=== PATIENT | female | born 1965 | race Caucasian/White ===

== ENCOUNTER 2016-12-23 13:12 | Inpatient (IN) | payer MEDICAID, MEDICARE ==
[2016-12-23 13:41] VITALS: BMI 25.4
[2016-12-23 13:42] VITALS: O2SAT 99
--- NOTE | 2016-12-23 14:36 | ED PDOC ---
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 eye vision blurry , nkda, c/o anxiety and depression for months. Pt. stated that she has chronic rt. facial droop from the bells palsy which she is following up with the neurologist with therapy treatment plus the plastic surgeon, rt. facial droop has been causing her feeling anxious, depressed and unable to sleep. Pt. stated that she had study on the lymes test and radiology studies of the brain which show no acute findings, no worsening of the rt. facial droop for the past several month, no numbness or tingling, no headache or night sweat, no palpitation, no dizziness, no change in vision, no other medical or psychological complaints. (Paras Samuel) Past Medical History - Provider Review Nursing Documentation Reviewed: Yes - Cardiac Hx Cardiac Disorders: No Hx Angina: No - Pulmonary Hx Respiratory Disorders: No - Neurological Hx Neurological Disorder: No - HEENT Hx HEENT Disorder: No - Renal Hx Renal Disorder: No - Endocrine/Metabolic Hx Endocrine Disorders: No - Hematological/Oncological Hx Blood Disorders: Yes Hx Cancer: Yes (left breast) - Integumentary Hx Dermatological Disorder: No - Musculoskeletal/Rheumatological Hx Musculoskeletal Disorders: No - Gastrointestinal Hx Gastrointestinal Disorders: No - Genitourinary/Gynecological Hx Genitourinary Disorders: No - Psychiatric Hx Psychophysiologic Disorder: Yes Hx Anxiety: Yes Hx Depression: Yes Hx Substance Use: No - Surgical History Hx Breast Biopsy: Yes (left breast) Family/Social History - Physician Review Nursing Documentation Reviewed: Yes Family/Social History: Unknown Family HX Smoking Status: Heavy Smoker > 10 Cigarettes Daily Hx Alcohol Use: No Hx Substance Use: No Allergies/Home Meds Allergies/Adverse Reactions: Allergies black pepper Allergy (Verified 12/25/16 01:28) PAIN Home Medications: Home Meds Medication Instructions Recorded Confirmed Alprazolam [Xanax] 1 tab PO BID 12/23/16 12/23/16 Amitriptyline HCl [Amitriptyline 50 mg PO HS 12/23/16 12/23/16 HCl] Bethanechol [Urecholine] 25 mg PO BID 12/23/16 12/23/16 Esomeprazole Magnesium [Nexium] 40 mg PO DAILY 12/23/16 12/23/16 Fluorometholone [Fluorometholone] 1 drop LEFTEYE BID 12/23/16 12/23/16 Levothyroxine [Synthroid] 137 mcg PO DAILY 12/23/16 12/23/16 Lubiprostone [Amitiza] 1 tab PO BID 12/23/16 12/23/16 Memantine HCl/Donepezil HCl 1 tab PO DAILY 12/23/16 12/23/16 [Namzaric 28 mg-10 mg Capsule] Metoprolol Succinate XL [Toprol XL] 50 mg PO DAILY 12/23/16 12/23/16 Montelukast [Singulair] 10 mg PO DAILY 12/23/16 12/23/16 Ofloxacin Ophth 0.3% [Ocuflox 1 drop LEFTEYE BID 12/23/16 12/23/16 Ophth 0.3%] Propylene Glycol/Peg 400/Pf 1 drop BOTHEYES BID 12/23/16 12/23/16 [Systane 0.3-0.4% Eye Drops] QUEtiapine [SEROquel] 50 mg PO HS 12/23/16 12/23/16 Simvastatin [Zocor] 20 mg PO DAILY 12/23/16 12/23/16 Tamoxifen Citrate [Tamoxifen 20 mg PO HS 12/23/16 12/23/16 Citrate] Review of Systems - Review of Systems Constitutional: absent: Fatigue, Fevers Eyes: absent: Vision Changes ENT: absent: Hearing Changes Respiratory: absent: SOB, Cough, Sputum Cardiovascular: absent: Chest Pain Gastrointestinal: absent: Abdominal Pain, Nausea, Vomiting Musculoskeletal: absent: Arthralgias, Neck Pain, Joint Swelling, Myalgias Skin: absent: Rash, Pruritis, Skin Lesions Neurological: Focal Weakness, Facial Droop. absent: Headache, Dizziness, Gait Changes, Speech Changes, Disequilibrium, Seizure Endocrine: absent: Diaphoresis Hemo/Lymphatic: absent: Adenopathy Psychiatric: Anxiety, Depression Physical Exam Vital Signs Reviewed: Yes Temperature: Afebrile Blood Pressure: Normal Pulse: Regular Respiratory Rate: Normal Appearance: Positive for: Well-Appearing, Non-Toxic, Comfortable Pain Distress: None Mental Status: Positive for: Alert and Oriented X 3 - Systems Exam Head: Present: Atraumatic, Normocephalic Pupils: Present: PERRL Extroacular Muscles: Present: EOMI Conjunctiva: Present: Normal Ears: Present: NORMAL TM, Normal Canal. No: Erythema Mouth: Present: Moist Mucous Membranes Pharnyx: No: ERYTHEMA, EXUDATE, TONSILS ENLARGED, Peritonsilar Swelling, Uvular Deviation Nose (External): Present: Atraumatic. No: Abrasion, Contusion, Laceration Nose (Internal): Present: Normal Inspection, No Active Bleeding. No: Rhinorrhea , Septal Hematoma, Epistaxis Neck: Present: Normal Range of Motion Respiratory/Chest: Present: Clear to Auscultation, Good Air Exchange. No: Respiratory Distress, Accessory Muscle Use Cardiovascular: Present: Regular Rate and Rhythm, Normal S1, S2. No: Murmurs Abdomen: Present: Normal Bowel Sounds. No: Tenderness, Distention, Peritoneal Signs Back: Present: Normal Inspection Upper Extremity: Present: Normal Inspection. No: Cyanosis, Edema Lower Extremity: Present: Normal Inspection. No: Edema Neurological: Present: GCS=15, Motor Func Grossly Intact, Gait Normal, Memory Normal, Other (+unable to elevated the rt. eyebrow but able to open and close the rt. eyelids, +rt. lateral lip drooping and unable to blow. ) Skin: Present: Warm, Dry, Normal Color. No: Rashes Lymphatic: No: Cervical Adenopathy Psychiatric: Present: Alert, Oriented x 3, Normal Insight, Normal Concentration Vital Signs Temp Pulse Resp BP Pulse Ox 12/23/16 13:41 98.1 F 64 16 107/71 99 Medical Decision Making - Lab Interpretations I have reviewed the lab results: Yes Interpretation: No clinic. lab abnormalty - RAD Interpretation Picu Nurse: Radiologist - EKG Interpretation Interpreted by ED Physician: Yes Type: 12 lead EKG Comparison: No previous EKG avail. ED Course and Treatment: I was available for consultation during PA evaluation. The chart was reviewed by me, and I agree with disposition. The documented history was done by the physician appliance mechanic. The documented physical exam was done by the physician appliance mechanic. The documented procedures were done by the physician appliance mechanic. ( Brody Ward) 12/23/16 14:44 -Labs/ua/uds/thyroid panel -CT head and chest xray -ekg -will try to medically clear for the PES evaluation. 12/23/16 17:44 -CT head: 6 mm left basal ganglia hypodensity presumed to reflect chronic lacunar infarct. I explained to the patient and the patient stated that she is following up with the neurologist already. No emergent intervention indicated at this time in the ER. -Chest x-ray show no active disease. -Labs are non-significant compared with previous labs. -EKG show Sinus Bradycardia @ 51 BPM, no ST elevation or depression, no T wave inversion, no previous ekg available for comparison -UA show mild leukocyte esterase, macrobid and urine culture ordered. -UDS show +benzo and +opiate. -Pt. is medically stable for the PES evaluation. 12/23/16 18:20 -PES coral evaluated the patient which he consulted with Dr. Johanne Ceja, admit to [facility]. Pt. agreed to be admitted. -I discussed with Dr. Ward about the case/labs/radiology results, he agreed on the admission and will put in the admission order. (Paras Samuel) - Lab Interpretations Microbiology Results: Microbiology Results 12/23/16 17:55 Urine,Clean Catch Urine Culture - Final No Growth (<1,000 CFU/ML) Lab Results: 12/23/16 17:12 12/23/16 17:12 Lab Results 12/23/16 17:55: Urine Color Yellow, Urine Appearance Clear, Urine pH 6.0, Ur Specific [place] 1.015, Urine Protein Negative, Urine Glucose (UA) Negative, Urine Ketones Negative, Urine Blood Negative, Urine Nitrate Negative, Urine Bilirubin Negative, Urine Urobilinogen 0.2, Ur Leukocyte Esterase Trace H, Urine RBC 2 - 5, Urine WBC 0 - 2, Ur Epithelial Cells Many, Urine Bacteria Small , Urine Opiates Screen Positive H, Urine Methadone Screen Negative, Ur Barbiturates Screen Negative, Ur Phencyclidine Scrn Negative, Ur Amphetamines Screen Negative, U Benzodiazepines Scrn Positive H, U Oth Cocaine Metabols Negative, U Cannabinoids Screen Negative 12/23/16 17:12: WBC 6.5, RBC 4.08, Hgb 10.5 L, Hct 33.7 L, MCV 82.6, MCH 25.7, MCHC 31.2, RDW 17.3 H, Plt Count 311, MPV 9.5, Gran % 34.4 L, Lymph % (Auto) 55.4 H, [place] % (Auto) 7.3 H, Eos % (Auto) 2.4, Baso % (Auto) 0.5, Gran # 2.25, Lymph # 3.6 H, [place] # 0.5, Eos # 0.2, Baso # 0.03, Sodium 140, Potassium 4.3, Chloride 101, Carbon Dioxide 31, Anion Gap 12, BUN 11, Creatinine 0.6, Est GFR ( Amer) > 60, Est GFR (Non-Af Amer) > 60, Random Glucose 85, Calcium 8.6, Total Bilirubin 0.3, AST 22, ALT < 6 L, Alkaline Phosphatase 51, Total Protein 7.3, Albumin 3.6, Globulin 3.7, Albumin/Globulin Ratio 1.0 L, Free T4 1.72, TSH 3rd Generation 0.65, Salicylates < 1 L, Acetaminophen < 10.0 L, Alcohol, Quantitative < 10 - RAD Interpretation Radiology Orders: 12/23/16 14:36 HEAD W/O CONTRAST [CT] Stat CHEST PORTABLE [RAD] Stat CT Head: PROCEDURE: CT HEAD WITHOUT CONTRAST. HISTORY: Rt. sided facial drooping since 07/2016, bells palsy COMPARISON: None available. TECHNIQUE: Axial computed tomography images were obtained through the head/brain without intravenous contrast. Radiation dose: Total exam DLP = 677.45 mGy-cm. This CT exam was performed using one or more of the following dose reduction techniques: Automated exposure control, adjustment of the mA and/or kV according to patient size, and/or use of iterative reconstruction technique. FINDINGS: HEMORRHAGE: No intracranial hemorrhage. BRAIN: No mass effect or edema. Intracranial atherosclerotic calcifications. 6 mm left basal ganglia hypodensity presumed to reflect chronic lacunar infarct. The crespo-white matter differentiation appears otherwise intact. Please note that MRI with diffusion imaging is more sensitive in the detection of acute ischemic event. VENTRICLES: No hydrocephalus. CALVARIUM: Unremarkable. PARANASAL SINUSES: Mild mucosal thickening of the right maxillary sinus. Small fluid level within the left maxillary sinus. The remainder of the visualized paranasal sinuses appear clear. MASTOID AIR CELLS: Unremarkable as visualized. No inflammatory changes. OTHER FINDINGS: None. IMPRESSION: 6 mm left basal ganglia hypodensity presumed to reflect chronic lacunar infarct. Chest x-ray: no active disease (Paras Samuel) - EKG Interpretation EKG Interpretation (Text): 12/23/16 18:43 Sinus Bradycardia @ 51 BPM, no ST elevation or depression, no T wave inversion, no previous ekg available for comparison (Paras Samuel) - Medication Orders Current Medication Orders: Acetaminophen (Tylenol 325mg Tab) 650 mg PO Q6H PRN PRN Reason: Pain, Mild (1-3) Al Hydrox/Mg Hydrox/Simethicone (Maalox Plus 30 Ml) 30 ml PO DAILY PRN PRN Reason: Upset Stomach Alprazolam (Xanax) 2 mg PO AMHS PRN; Protocol PRN Reason: for anxiety Last Admin: 12/25/16 09:25 Dose: 2 MG Behavioural Document 12/25/16 09:25 RGO (Rec: 12/25/16 09:25 [id number] Maintenance Maintenance Dose Yes Amitriptyline HCl (Elavil) 25 mg PO HS RUDY Last Admin: 12/24/16 22:23 Dose: 25 MG Artificial Tears (Artificial Tears Opht Oint) 1 gm OD HS RUDY Artificial Tears (Artificial Tears) 2 ml OD Q2 PRN PRN Reason: Dry eyes Last Admin: 12/25/16 14:40 Dose: 1 DROP Artificial Tears (Refresh Opth Soln) 0.3 ml OD Q3 PRN PRN Reason: Other Bethanechol Chloride (Urecholine) 25 mg PO HS RUDY Last Admin: 12/24/16 22:21 Dose: 25 MG Duloxetine HCl (Cymbalta) 30 mg PO DAILY [facility] Last Admin: 12/25/16 09:25 Dose: 30 MG Fenofibrate (Tricor) 145 mg PO HS [facility] Last Admin: 12/24/16 22:22 Dose: 145 MG Home Med (Home Med) 1 unit PO DAILY [facility] Last Admin: 12/25/16 07:48 Dose: 1 UNIT Home Med (Home Med) 1 unit PO Q6H PRN PRN Reason: FOR NECK PAIN Last Admin: 12/25/16 09:27 Dose: 1 UNIT Levothyroxine Sodium (Synthroid) 25 mcg PO 0700 [facility] Last Admin: 12/25/16 07:47 Dose: 25 MCG Levothyroxine Sodium (Synthroid) 112 mcg PO 0700 [facility] Last Admin: 12/25/16 07:47 Dose: 112 MCG Magnesium Hydroxide (Milk Of Magnesia) 30 ml PO DAILY PRN PRN Reason: Constipation Metoprolol Succinate (Toprol Xl) 50 mg PO BRK [facility] Last Admin: 12/25/16 09:23 Dose: 50 MG MAR Pulse and Blood Pressure Document 12/25/16 09:23 RGO (Rec: 12/25/16 09:24 RGO [id number]) Pulse Pulse Rate (60-90) 60 Blood Pressure Blood Pressure (100/60-150/90) 127/71 Mirtazapine (Remeron) 45 mg PO [facility] Montelukast Sodium (Singulair) 10 mg PO [facility] Last Admin: 12/24/16 22:23 Dose: 10 MG Nicotine (Nicoderm Cq) 1 patch TD DAILY [facility] Last Admin: 12/25/16 09:25 Dose: 1 PATCH MAR Patch Placement/Removal Document 12/25/16 09:25 RGO (Rec: 12/25/16 09:25 RGO [id number]) Patch Removal Removal of previous patch done Yes Patch Placement Left, Right or Bilateral Left Upper or Lower Upper Pain Location Body Site Arm Nitrofurantoin Macrocrystals (Macrobid) 100 mg PO Q12 [facility] Last Admin: 12/25/16 09:26 Dose: 100 MG Pantoprazole Sodium (Protonix Ec Tab) 40 mg PO ACB [facility] Risperidone (Risperdal Tab) 1 mg PO AMHS [facility] PRN Reason: Protocol Tamoxifen Citrate (Nolvadex) 20 mg PO [facility] Last Admin: 04/04/17 22:22 Dose: 20 MG Tramadol HCl (Ultram) 50 mg PO TID [facility] Last Admin: 12/25/16 14:36 Dose: 50 MG MAR Pain Assessment Document 12/25/16 14:36 RGO (Rec: 12/25/16 14:37 RGO [id number]) Pain Reassessment Is this a pain reassessment? No Sleep Is patient sleeping during reassessment? No Presence of Pain Presence of Pain Yes Pain Scale Used Pain Scale Used Numeric Location Pain Location Body Site Generalized Description Description Chronic Intensity of Pain at present 7 Pain Behavior Irritability Aggravating Factors Exercise/Activity Alleviating Factors/Management Medication Techniques Alleviating Factors Medication Discontinued Medications Alprazolam (Xanax) 2 mg PO 1000,2200 [facility] PRN Reason: Protocol Last Admin: 12/24/16 08:57 Dose: 2 MG Behavioural Document 12/24/16 08:57 RGO (Rec: 12/24/16 08:57 RGO [id number]) Maintenance Maintenance Dose Yes Amitriptyline HCl (Elavil) 50 mg PO [facility] Last Admin: 12/23/16 23:05 Dose: 50 MG Amitriptyline HCl (Elavil) 75 mg PO [facility] Bethanechol Chloride (Urecholine) 25 mg PO BID [facility] Last Admin: 12/24/16 09:00 Dose: 25 MG Home Med (Home Med) 1 unit PO Q6H PRN PRN Reason: FOR NECK PAIN Home Med (Home Med) 1 unit PO Q6H PRN PRN Reason: NECK PAIN Levothyroxine Sodium (Synthroid) 112 mcg PO ACB [facility] Last Admin: 12/24/16 09:00 Dose: 112 MCG Levothyroxine Sodium (Synthroid) 25 mcg PO ACB [facility] Last Admin: 12/24/16 09:00 Dose: 25 MCG Mirtazapine (Remeron) 15 mg PO [facility] Last Admin: 12/23/16 23:04 Dose: 15 MG Mirtazapine (Remeron) 30 mg PO [facility] Last Admin: 12/24/16 22:21 Dose: 30 MG Nitrofurantoin Macrocrystals (Macrobid) 100 mg PO STAT STA Stop: 12/23/16 18:46 Last Admin: 12/23/16 19:58 Dose: 100 MG Quetiapine Fumarate (Seroquel) 50 mg PO [facility] PRN Reason: Protocol Last Admin: 12/23/16 23:03 Dose: 50 MG Behavioural Document 12/23/16 23:03 TW (Rec: 12/23/16 23:03 TW [id number]) Maintenance Maintenance Dose Yes Re-Assess: Reassess Psych Meds Document 12/24/16 00:03 TW (Rec: 12/24/16 00:44 TW [id number]) Reassess Psych Med Effective Risperidone (Risperdal Tab) 0.5 mg PO AMHS RUDY PRN Reason: Protocol Last Admin: 12/25/16 09:24 Dose: 0.5 MG Behavioural Document 12/25/16 09:24 RGO (Rec: 12/25/16 09:25 RGO [id number]) Maintenance Maintenance Dose No Nonmedicinal Nonmedicinal Interventions Therapeutic Communication Behavior Behavior for Medication: Anxiety - PA / SOFTWARE TECHNICAL LEAD / Resident Statement /DO has reviewed & agrees with the documentation as recorded. Disposition/Present on Arrival - Present on Arrival Any Indicators Present on Arrival: No History of DVT/PE: No History of Uncontrolled Diabetes: No Urinary Catheter: No History of Decub. Ulcer: No History Surgical Site Infection Following: None - Disposition Have Diagnosis and Disposition been Completed?: Yes Disposition Time: 17:45 Patient Plan: Admission - Disposition Diagnosis: Facial droop, Major depression, UTI (urinary tract infection) Disposition: HOSPITALIZED Patient Problems: Current Active Problems Problem Status Diagnosed Facial droop Acute Major depression Acute UTI (urinary tract infection) Acute Condition: STABLE
[2016-12-23 17:13] LABS: ADD MANUAL DIFF? NO
[2016-12-23 17:27] LABS: ALKALINE PHOSPHATASE 51 U/L (38-133); AST/SGOT 22 U/L (15-39); BASO # 0.03 K/mm3 (0.0-2.0); BASO % 0.5 % (0.0-3.0); BILIRUBIN,TOTAL 0.3 mg/dL (0.2-1.3); BLOOD UREA NITROGEN 11 mg/dL (7-21); CALCIUM 8.6 mg/dL (8.4-10.5); CARBON DIOXIDE 31 mmol/L (21-33); CHLORIDE 101 mmol/L (98-107); EOS # 0.2 (0.0-0.7); EOS % 2.4 % (1.5-5.0); GFR AFRICAN-AMERICAN > 60; GLUCOSE,RANDOM 85 mg/dL (70-110); GRAN # 2.25 (1.4-6.5); GRAN % 34.4 % (50.0-68.0); HEMATOCRIT 33.7 % (36.0-48.0); LYMPH # 3.6 (1.2-3.4); LYMPH % 55.4 % (22.0-35.0); MEAN CELL VOLUME 82.6 fL (80.0-105.0); MEAN CORPUSCULAR HEMOGLOBIN 25.7 pg (25.0-35.0); MEAN CORPUSCULAR HGB CONC 31.2 g/dl (31.0-37.0); MEAN PLATELET VOLUME 9.5 fl (7.0-11.0); MONO # 0.5 (0.1-0.6); MONO % 7.3 % (1.0-6.0); PLATELET COUNT 311 10^3/uL (120.0-450.0); POTASSIUM 4.3 mmol/L (3.6-5.0); RED CELL DISTRIBUTION WIDTH 17.3 % (11.5-14.5); SODIUM 140 mmol/L (132-148); TOTAL PROTEIN 7.3 g/dL (5.8-8.3); WHITE BLOOD COUNT 6.5 10^3/ul (4.5-11.0)
--- NOTE | 2016-12-23 17:27 | CT ---
PROCEDURE: CT HEAD WITHOUT CONTRAST. HISTORY: Rt. sided facial drooping since 07/2016, bells palsy COMPARISON: None available. TECHNIQUE: Axial computed tomography images were obtained through the head/brain without intravenous contrast. Radiation dose: Total exam DLP = 677.45 mGy-cm. This CT exam was performed using one or more of the following dose reduction techniques: Automated exposure control, adjustment of the mA and/or kV according to patient size, and/or use of iterative reconstruction technique. FINDINGS: HEMORRHAGE: No intracranial hemorrhage. BRAIN: No mass effect or edema. Intracranial atherosclerotic calcifications. 6 mm left basal ganglia hypodensity presumed to reflect chronic lacunar infarct. The crespo-white matter differentiation appears otherwise intact. Please note that MRI with diffusion imaging is more sensitive in the detection of acute ischemic event. VENTRICLES: No hydrocephalus. CALVARIUM: Unremarkable. PARANASAL SINUSES: Mild mucosal thickening of the right maxillary sinus. Small fluid level within the left maxillary sinus. The remainder of the visualized paranasal sinuses appear clear. MASTOID AIR CELLS: Unremarkable as visualized. No inflammatory changes. OTHER FINDINGS: None. IMPRESSION: 6 mm left basal ganglia hypodensity presumed to reflect chronic lacunar infarct.
[2016-12-23 17:28] LABS: ALT/SGPT < 6 U/L (7-56)
[2016-12-23 17:29] LABS: ALCOHOL SERUM < 10 mg/dL (0-10)
[2016-12-23 17:44] LABS: FREE T4 1.72 ng/dL (0.78-2.19)
[2016-12-23 17:58] LABS: THYROID STIMULATING HORMONE 0.65 mIU/mL (0.46-4.68)
[2016-12-23 18:33] LABS: URINE BILIRUBIN NEGATIVE (NEGATIVE); URINE BLOOD NEGATIVE (NEGATIVE); URINE GLUCOSE (UA) NEGATIVE (NEGATIVE); URINE KETONE NEGATIVE (NEGATIVE); URINE LEUKOCYTE ESTERASE TRACE Leu/uL (NEGATIVE); URINE PROTEIN NEGATIVE mg/dL (<30 mg/dL); URINE UROBILINOGEN 0.2 E.U./dL (<1 E.U./dL)
[2016-12-23 18:41] LABS: URINE APPEARANCE CLEAR (CLEAR); URINE COLOR YELLOW (YELLOW)
[2016-12-23 18:53] LABS: URINE BACTERIA SMALL (NEG); URINE EPITHELIAL CELLS MANY /hpf (0-5); URINE WBC 0 - 2 /hpf (0-6)
[2016-12-23] MEDS ORDERED: Alum-Mag Hydrox-Simethicone Susp (30 mL) PO PRN (21:52)
[2016-12-23] MEDS ORDERED: Magnesium Hydroxide Susp 30 ml UD PO PRN (21:52)
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
[2016-12-24] MEDS ORDERED: Levothyroxine 25 MCG TAB PO SCH (07:30)
[2016-12-24] MEDS ORDERED: Levothyroxine 112 MCG TAB PO SCH (07:30)
--- NOTE | 2016-12-24 08:10 | RAD ---
HISTORY: medical clearance COMPARISON: No prior. FINDINGS: LUNGS: No active pulmonary disease. PLEURA: No significant pleural effusion identified, no pneumothorax apparent. CARDIOVASCULAR: Normal. OSSEOUS STRUCTURES: Evidence of prior lower cervical spinal surgical fixation. VISUALIZED UPPER ABDOMEN: Normal. OTHER FINDINGS: None. IMPRESSION: No active disease.
[2016-12-24 08:26] LABS: CHOLESTEROL 197 mg/dL (130-200); GLUCOSE,FASTING 84 mg/dL (65-110)
[2016-12-24 08:50] LABS: FREE T4 1.59 ng/dL (0.78-2.19)
[2016-12-24] MEDS: Metoprolol Succinate 50 mg XL Tab PO SCH ×2 (08:59→09:02)
[2016-12-24 09:04] LABS: THYROID STIMULATING HORMONE 0.67 mIU/mL (0.46-4.68)
[2016-12-24 09:55] VITALS: RESP 20
[2016-12-24] MEDS ORDERED: Home Med 1 UNIT PO PRN ×2 (11:59→13:48)
--- NOTE | 2016-12-24 12:27 | CON ---
DATE: 12/24/2016 HISTORY OF PRESENT ILLNESS: I was called to the psych floor to evaluate her for the psychiatrist. I see her resting in her room on the fifth floor. She is comfortable lying in bed. She slept fairly well. She is a 51-year-old female. She has feelings of depression, anxiety, unable to sleep. She had Lyme 's and brain studies in the past which showed no acute findings. She has a right facial droop from her old CVA that is persistent. 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 No known drug allergies. Anxiety, depression, for months. Also, cancer of the left breast. She had a biopsy of the left breast. FAMILY HISTORY: Hypertension in the family. SOCIAL HISTORY: She still smokes. No apparent alcohol or drug abuse that she will admit to. ALLERGIES: SHE HAS ALLERGIES TO BLACK PEPPER. MEDICATIONS: She takes Xanax, Synthroid for hypothyroid Singulair for her asthma, simvastatin for the high cholesterol, tamoxifen for the breast cancer, Xanax for anxiety, amitriptyline, urecholine, Nexium for GERD, fluorometholone, Synthroid, Amitiza. She has hypothyroidism. Amantadine, donepezil for dementia , metoprolol, ofloxacin eyedrops, Seroquel, Zocor. REVIEW OF SYSTEMS: Chronic right facial droop. No acute vision changes or hearing changes acutely, but chronic. No sore throat. No neck pain. No chest pain or palpitations. No shortness of breath or cough. No congestion. No abdominal pain, nausea, vomiting, constipation, diarrhea. Legs: No swelling. Skin for the most part she tells me is intact. Focal weakness, facial droop of the right side. PHYSICAL EXAMINATION: GENERAL: Head is atraumatic, normocephalic. She is alert and oriented x 3, while appearing, nontoxic, comfortable. She tells me she is a good person. HEENT: Extraocular muscles are intact. Throat is moist, no erythema. NECK: Supple, no JVD. HEART: Regular rate. Normal S1, S2. LUNGS: Have decreased breath sounds, but clear to auscultation. ABDOMEN: Soft, nontender, positive bowel sounds. EXTREMITIES: Have no edema. NEUROLOGIC: GCS is 15. She has a right facial droop, cannot lift right eyebrow. Right lateral lip drooping. She cannot blow. SKIN: Warm and dry. Alert and oriented x 3. LYMPHATIC: No palpable lymphadenopathy and thyroid is midline. LABORATORY DATA: She had multiple tests. She had a white count of 6.5, hemoglobin 10.5, hematocrit 33.7, platelets of 311. Chemistries: 140 sodium, potassium 4.3, BUN 11, creatinine 0.6, GFR is greater than 60, sugar is 85, calcium is 8.6, total bili is 0.3, AST is 22, ALT is less than 6, alk phos is 51 , total protein 7.3, albumin is 3.6. Triglycerides of 433. She is going to be on a medication for the triglycerides. Cholesterol is 197. TSH is 0.67. Urine is small. She is positive for opiates and benzodiazepines. She has a chest x-ray that was clear, but the head CT showed a 6 mm left basal ganglia hypodensity a chronic lacunar infarct which could explain her right-sided facial droop. I will get neurology to see her. I will also put her on something for the elevated triglycerides. Also, her medications: She is on Elavil, Nicoderm to quit smoking, tamoxifen for the breast cancer, Singulair, Synthroid, Toprol for hypertension, Xanax for the anxiety. We will keep a very close eye on her, watch her labs. I am going to put her on Tricor. I will get neurology to see her for new found stroke. Thank you for letting me get involved with her treatment. Darius Solis DO cc: [id number] TT: 12/24/2016 12:26:46 Confirmation # [id number] Dictation # [id number] tn MTDD
[2016-12-24] MEDS ORDERED: ENDOCET PO PRN (12:52)
[2016-12-24] MEDS: NEXIUM 40MG CAPSULE PO SCH (14:54)
--- NOTE | 2016-12-24 15:08 | PCM.PSYCH ---
Initial Psychiatric Evaluation - Initial Psychiatric Evaluation Type of Admission: Voluntary Legal Status: Capacity (patient has capacity to sign consent for treatment) Chief Complaint (in patient's own words): "I was not able to function, I had difficulty to concentrate, was not able to sleep, I was taking a lot of medications, I was feeling overwhelmed, I need to have help in order to adjust my medications" Patient's Reaction to Hospitalization: patient was referred by her private psychiatrist Dr. Das for admission, as well as medications adjustment. History of Present Illness and Precipitating Events: pt was seen by by mistake. Shortly patient is 51 years old female, h/o depression, multiple medical issues , one psych admission in the past at age of 18, was referred by private psychiatrist for evaluation of depressive symptoms, feeling of hopelessness, inability to function. Pt is on multiple psychotropic medications as well as medical meds, needs further evaluation and stabilization, observation. pt was seen and examined at the tx team meeting, discussed with tx team. pt presented with marginal personal hygiene, seems to be careless about her appearance, fair ADLs. pt said that she is taking multiple medications, this marketing underwriter called to the pt's pharmacy, confirmed all [phone] neurontin 800 mg at the night filled 11/28/[address] 40 mg daily filled 11/28/2016 Montelukast 10mg po daily 12/23/2016 Endocet 10/325mg as needed q8hrs 12/20/2016 symbicort 160/4.5 filled 12/17/2016 simvastatin 20 mg twice a day field 12/14/2016 Belsomra 10 mg at the nighttime filled 12/10/2016 promethazine as needed Tamoxifen 20 mg daily filled 12/08/2016 Amox-clav [id number] twice a day after meals filled only week supply Xanax 2 mg 1 tab a.m. and at bedtime Amitriptyline 50 mg before bedtime filled 12/05/2016 Quetiapine 50 mg at the night time ofloxacin 0.3% eye drops only one week supply bacitracin-polymyxin eye oint filled 11/30/2016 metoprolol ER 50mg daily filled 11/25/2016 montelucast sodium 10mg po daily filled 11/24/16 Trazodone 300mg po hs filled 11/12/2016 Donepezil 5mg po hs filled 11/12/2016 Namenda XR 28mg daily filled 11/05/2016 temazepam 30mg po hs filled 10/29/2016 synthroid 137mcg daily filled 10/04/2016 pt said that at night she has difficulties to fall and to stay asleep and at the morning she has difficulties to function. pt said she was feeling depressed, hopeless and helpless, denied thoughts of harming self or others. Pt reported that she has difficulties to concentrate, difficulties to stay focus, pt also reported her mind is wondering, and obviously pt has tangential and circumstantial thought process, pt also reported that she had h/o multitasking and impulsive behavior. Pt also reported being irritable, impulsive and agitated behavior. pt also reported to have anxiety, pt said that she is worried about things a lot. Pt said she was started on medications for her "memory", most likely namenda and donepezil by private psychiatrist, pt was on barbiturates, neurontin, trazodone, temazepam and seroquel, amitriptylin. pt denied v/a/t hallucinations, denied paranoid ideation, but thought process was circumstantial and tangential. denied using drugs, smokes about 7 cig a day, counseling provided. Smoking Cessation Counseling: The patient was counseled as to the multiple risks to his/her health from continued use of tobacco products. It was explained that continuing to smoke may lead to multiple short and intermodal customer service negative health consequences, including but not limited to mouth/esophageal /lung cancer, COPD, and heart disease. He/she states he/she understands these risks, and also understands the options and resources available to him/her to help him/her stop smoking. Nicotine replacement therapy, local hotlines, and local resources were discussed as viable options for helping him/her stop his/her tobacco use. The total time spent counseling the patient regarding tobacco cessation was 3 minutes Social h/o: pt is , has a dog. past psych h/o: at age of 18, pt's had an affair and her cousin had a child from her , pt had thoughts of harming self, but called 911 and admitted herself into the hospital. Medical h/o: h/o strokes, h/o Stock's palsy, pt has facial assymetry, h/o hyperthyroidism, pt has private bending machine operator, pt is a breast ca survivor is on tamoxifen, pt also has private neurologist . see medical note for more detailed info, h/o meningitis at age of 1yo. family h/o: alcohol dependence in her father. 12/23/16 17:12 12/23/16 17:12 Lab Results 12/24/16 07:45: Fasting Glucose 84, Triglycerides 433 H, Cholesterol 197, LDL Cholesterol Direct 75, HDL Cholesterol 35, Free T4 1.59, TSH 3rd Generation 0.67 12/23/16 17:55: Urine Color Yellow, Urine Appearance Clear, Urine pH 6.0, Ur Specific [place] 1.015, Urine Protein Negative, Urine Glucose (UA) Negative, Urine Ketones Negative, Urine Blood Negative, Urine Nitrate Negative, Urine Bilirubin Negative, Urine Urobilinogen 0.2, Ur Leukocyte Esterase Trace H, Urine RBC 2 - 5, Urine WBC 0 - 2, Ur Epithelial Cells Many, Urine Bacteria Small , Urine Opiates Screen Positive H, Urine Methadone Screen Negative, Ur Barbiturates Screen Negative, Ur Phencyclidine Scrn Negative, Ur Amphetamines Screen Negative, U Benzodiazepines Scrn Positive H, U Oth Cocaine Metabols Negative, U Cannabinoids Screen Negative 12/23/16 17:12: WBC 6.5, RBC 4.08, Hgb 10.5 L, Hct 33.7 L, MCV 82.6, MCH 25.7, MCHC 31.2, RDW 17.3 H, Plt Count 311, MPV 9.5, Gran % 34.4 L, Lymph % (Auto) 55.4 H, [place] % (Auto) 7.3 H, Eos % (Auto) 2.4, Baso % (Auto) 0.5, Gran # 2.25, Lymph # 3.6 H, [place] # 0.5, Eos # 0.2, Baso # 0.03, Sodium 140, Potassium 4.3, Chloride 101, Carbon Dioxide 31, Anion Gap 12, BUN 11, Creatinine 0.6, Est GFR ( Amer) > 60, Est GFR (Non-Af Amer) > 60, Random Glucose 85, Calcium 8.6, Total Bilirubin 0.3, AST 22, ALT < 6 L, Alkaline Phosphatase 51, Total Protein 7.3, Albumin 3.6, Globulin 3.7, Albumin/Globulin Ratio 1.0 L, Free T4 1.72, TSH 3rd Generation 0.65, Salicylates < 1 L, Acetaminophen < 10.0 L, Alcohol, Quantitative < 10 Vital Signs Temp Pulse Resp BP Pulse Ox 12/24/16 09:54 98.8 F 60 20 158/88 H 12/24/16 09:02 60 158/88 H 12/23/16 23:30 18 12/23/16 13:41 98.1 F 64 16 107/71 99 Current Medications: Active Medications Generic Name Dose Route Start Last Admin Trade Name Freq PRN Reason Stop Dose Admin Acetaminophen 650 mg 12/23/16 21:52 Tylenol 325mg Tab PO Q6H PRN Pain, Mild (1-3) Al Hydrox/Mg Hydrox/Simethicone 30 ml 12/23/16 21:52 Maalox Plus 30 Ml PO DAILY PRN Upset Stomach Alprazolam 2 mg 12/24/16 11:40 Xanax PO AMHS PRN for anxiety Protocol Amitriptyline HCl 25 mg 12/24/16 22:00 Elavil PO HS [facility] Bethanechol Chloride 25 mg 12/24/16 22:00 Urecholine PO HS [facility] Duloxetine HCl 30 mg 12/24/16 11:45 Cymbalta PO DAILY [facility] Fenofibrate 145 mg 12/24/16 22:00 Tricor PO HS [facility] Home Med 1 unit 12/24/16 12:00 Home Med PO DAILY [facility] Home Med 1 unit 12/24/16 12:52 Home Med PO Q6H PRN FOR NECK PAIN Levothyroxine Sodium 25 mcg 12/25/16 07:00 Synthroid PO 0700 [facility] Levothyroxine Sodium 112 mcg 12/25/16 07:00 Synthroid PO 0700 [facility] Magnesium Hydroxide 30 ml 12/23/16 21:52 Milk Of Magnesia PO DAILY PRN Constipation Metoprolol Succinate 50 mg 12/24/16 08:00 12/24/16 09:02 Toprol Xl PO 50 mg BRK RUDY Administration Mirtazapine 30 mg 12/24/16 11:37 Remeron PO HS [facility] Montelukast Sodium 10 mg 12/24/16 22:00 Singulair PO HS [facility] Nicotine 1 patch 12/24/16 08:00 12/24/16 08:57 Nicoderm Cq TD 1 patch DAILY [facility] Administration Risperidone 0.5 mg 12/24/16 22:00 Risperdal Tab PO AMHS [facility] Protocol Tamoxifen Citrate 20 mg 12/24/16 22:00 Nolvadex PO HS [facility] risk, benefits and alternatives of meds were discussed with the pt. Past Psychiatric History - Past Psychiatric History Previous Treatment History: Inpatient Prior Professional Help: see HPI Prior Psychiatric Treatment: see HPI At [facility]: see HPI Duration: see HPI Nature of Treatment: see HPI Explanation of prior treatment: see HPI History of Abuse: see HPI History of ETOH/Drug Use: see HPI History of Family Illness: see HPI Pertinent Medical Hx (Current Medical&Sleep Prob, Allergies): Allergies Allergy/AdvReac Type Severity Reaction Status Date / Time black pepper Allergy PAIN Verified 12/23/16 15:11 Alprazolam [Xanax] 1 tab PO BID 12/23/16 Amitriptyline HCl [Amitriptyline HCl] 50 mg PO HS 12/23/16 Bethanechol [Urecholine] 25 mg PO BID 12/23/16 Esomeprazole Magnesium [Nexium] 40 mg PO DAILY 12/23/16 Fluorometholone [Fluorometholone] 1 drop LEFTEYE BID 12/23/16 Levothyroxine [Synthroid] 137 mcg PO DAILY 12/23/16 Lubiprostone [Amitiza] 1 tab PO BID 12/23/16 Memantine HCl/Donepezil HCl [Namzaric 28 mg-10 mg Capsule] 1 tab PO DAILY Metoprolol Succinate XL [Toprol XL] 50 mg PO DAILY 12/23/16 Montelukast [Singulair] 10 mg PO DAILY 12/23/16 Ofloxacin Ophth 0.3% [Ocuflox Ophth 0.3%] 1 drop LEFTEYE BID 12/23/16 Propylene Glycol/Peg 400/Pf [Systane 0.3-0.4% Eye Drops] 1 drop BOTHEYES BID 12/06 QUEtiapine [SEROquel] 50 mg PO HS 12/23/16 Simvastatin [Zocor] 20 mg PO DAILY 12/23/16 Tamoxifen Citrate [Tamoxifen Citrate] 20 mg PO HS 12/23/16 Review of Systems - Review of Systems Systems not reviewed;Unavailable: Acuity of Condition - EENT Eyes: As Per HPI Ears: As Per HPI Nose/Mouth/Throat: As Per HPI - Breasts Breasts: As Per HPI - Cardiovascular Cardiovascular: As Per HPI - Respiratory Respiratory: As Per HPI - Gastrointestinal Gastrointestinal: As Per HPI - Genitourinary Genitourinary: As Per HPI - Reproductive: Female Reproductive:Female: As Per HPI - Menstruation Menstruation: As Per HPI - Musculoskeletal Musculoskeletal: As Par HPI - Integumentary Integumentary: As Per HPI - Neurological Neurological: As Per HPI - Psychiatric Psychiatric: As Per HPI - Endocrine Endocrine: As Per HPI - Hematologic/Lymphatic Hematologic: As Per HPI Mental Status Examination - Personal Presentation Personal Presentation: Looks older than stated age - Affect Affect: Flat - Motor Activity Motor Activity: Calm - Reliability in Providing Information Reliability in Providing Information: Poor, due to alteration in thoughts, Poor , due to altered mood - Speech Speech: Tangential, Other (circumstantia) - Mood Mood: Depressed, Anxious - Formal Thought Process Formal Thought Process: Circumstantial - Obsessions/Compulsions Obsessions: None Compulsions: None - Cognitive Functions Orientation: Person, Place, Situation, Time Sensorium: Alert Attention/Concentration: Easily distracted Abstract Thinking: [place] Estimate of Intelligence: Average Judgement: Intact, as evidence by: Insight regarding need for hospitalization - Risk Risk: Self-mutilation, Diminished functioning - Strength & Assets Inventory Strength & Assets Inventory: Spiritual affiliations, Cooperative - Limitations Limitations: Other (multiple medical problems) DSM 5 DX - DSM 5 DSM 5 Diagnosis: rule out bipolar spectrum disorder r/o mood disorder due to a general medical condition polypharmacy r/o medication induced mood disorder r/o BRITANY - Recommended/Plan of Treatment Treatment Recommendations and Plan of Treatment: milieu, structure, supportive therapy meds confirmed with pt's pharmacy [phone] QUEtiapine will be d/c as per pt's request Amitriptyline will be decreased to 25mghs with the plan to d/c cymbalta 30mg po daily for depression, anxiety, neuropathy Alprazolam 2mg bid prn for anxiety risperdal 0.5mg amhs for disorganized thought process and mood stabilization remeron was started 15mg yesterday, pt asked it to be increased to 30mg for depression and insomnia neurontin will be d/c Bethanechol will be continued at hs Nexium is nonformulary, will give protonix Fluorometholone will ask medical team Levothyroxine was resumed 137 mcg PO DAILY Amitiza 1 tab PO BID will ask medical team Memantine will be d/c pt is not demented Metoprolol 50 mg PO DAILY will be continued Singulair resumed 10 mg PO DAILY Ofloxacin Ophth 0.3%1 drop LEFTEYE BID will ask medical team Propylene Glycol/Peg 400/Pf [Systane 0.3-0.4% Eye Drops] 1 drop BOTHEYES BID will ask medical team Simvastatin [Zocor] 20 mg PO DAILY 12/23/16 Tamoxifen Citrate 20 mg PO HS will be resumed (pt should continue it till the next October) Projected ELOS: 7days Prognosis: guarded Discharge Plan and Discharge Criteria: Pt will be not depressed or manic, will be more hopeful, will be not psychotic or anxious, will be tolerating medications well, will not have major side effects, will be able to function, will not pose threat to self or others. - Smoking Cessation Smoking Cessation Initiated: Yes
[2016-12-24 15:48] LABS: URINE BILIRUBIN NEGATIVE (NEGATIVE); URINE BLOOD TRACE-INTACT (NEGATIVE); URINE GLUCOSE (UA) NEGATIVE (NEGATIVE); URINE KETONE NEGATIVE (NEGATIVE); URINE LEUKOCYTE ESTERASE NEGATIVE Leu/uL (NEGATIVE); URINE PROTEIN NEGATIVE mg/dL (<30 mg/dL); URINE UROBILINOGEN 0.2 E.U./dL (<1 E.U./dL)
[2016-12-24 15:49] LABS: URINE APPEARANCE SL CLOUDY (CLEAR); URINE COLOR YELLOW (YELLOW)
[2016-12-24 15:59] LABS: URINE AMORPHOUS SEDIMENT FEW; URINE BACTERIA MANY (NEG); URINE WBC 0 - 2 /hpf (0-6)
--- NOTE | 2016-12-24 18:52 | CARD ---
APPROVED REPORT EKG Measurement Heart [id number] <Conclusion> Sinus bradycardia Possible Left atrial enlargement Nonspecific T wave abnormality Abnormal ECG
[2016-12-25] MEDS: Levothyroxine 25 MCG TAB PO SCH (07:47)
[2016-12-25] MEDS: Levothyroxine 112 MCG TAB PO SCH (07:47)
[2016-12-25] MEDS: NEXIUM 40MG CAPSULE PO SCH (07:48)
[2016-12-25 08:24] LABS: HEMATOCRIT 36.8 % (36.0-48.0); MEAN CELL VOLUME 81.8 fL (80.0-105.0); MEAN CORPUSCULAR HEMOGLOBIN 25.6 pg (25.0-35.0); MEAN CORPUSCULAR HGB CONC 31.3 g/dl (31.0-37.0); MEAN PLATELET VOLUME 9.3 fl (7.0-11.0); RED CELL DISTRIBUTION WIDTH 17.4 % (11.5-14.5); WHITE BLOOD COUNT 4.2 10^3/ul (4.5-11.0)
[2016-12-25 08:32] LABS: ALKALINE PHOSPHATASE 63 U/L (38-133); ALT/SGPT 19 U/L (7-56); AST/SGOT 24 U/L (15-39); BILIRUBIN,TOTAL 0.3 mg/dL (0.2-1.3); BLOOD UREA NITROGEN 11 mg/dL (7-21); CALCIUM 8.9 mg/dL (8.4-10.5); CARBON DIOXIDE 29 mmol/L (21-33); CHLORIDE 104 mmol/L (95-110); GFR AFRICAN-AMERICAN > 60; GLUCOSE,RANDOM 107 mg/dL (70-110); POTASSIUM 4.1 mmol/L (3.6-5.0); SODIUM 142 mmol/L (132-148); TOTAL PROTEIN 7.6 g/dL (5.8-8.3)
--- NOTE | 2016-12-25 09:06 | PN ---
DATE: 12/25/2016 I saw her resting in bed this morning. She is telling me she did not sleep at all last night. She does not like the bed or the pillow and she is having chronic neck pain from herniated nucleus in the past of the cervical spine. She is on Cymbalta, Elavil, Maalox, milk of magnesia, Nicoderm, Novedex, Protonix, Remeron, Risperdal, Singulair, Synthroid, Toprol, Tricor, Tylenol, Ultram which I just started, urecholine and Xanax. She is telling me she wants her Percocet 10/325 two pills every 4 hours for her pain. She looks awfully comfortable to me, although she tells me she is in a lot of pain. I will call in pain management to help us. I will put her on tramadol 50 three times a day. PHYSICAL EXAMINATION: VITAL SIGNS: She has a 98.2 temp, 60 pulse, 127/71 blood pressure, 20 respiratory rate. Vital signs seem awful calm. HEENT: Her head is atraumatic, normocephalic. She does have a right facial droop. HEART: Regular rate. LUNGS: Clear to auscultation. ABDOMEN: Soft. EXTREMITIES: No edema. She has a 6.5 white count, 10.5, hemoglobin, 311 platelets. Sodium 140, potassium 4.3, BUN 11, creatinine 0.6, GFR is greater than 60. AST is 22, ALT is less than 6, alk phos 51. Urine: Many bacteria. I will put her on an antibiotic. Positive for benzos and opiates. Nonreactive RPR. Continue with aggressive psychiatric care. I will call in pain management, add tramadol, add an antibiotic for urinary tract infection. Darius Solis DO cc: [id number] TT: 12/25/2016 09:05:54 Confirmation # [id number] Dictation # [id number] en MTDD
[2016-12-25] MEDS: Metoprolol Succinate 50 mg XL Tab PO SCH (09:23)
--- NOTE | 2016-12-25 10:09 | CON ---
DATE: 12/25/2016 REASON FOR CONSULTATION: Facial droop. HISTORY OF PRESENT ILLNESS: The patient is a 51-year-old female who has been asked for evaluation of facial droop. The patient apparently started having weakness of the right side of the face about 5 months ago. She is still having difficulty closing the right eye. The patient was diagnosed with Be ll palsy. The patient says that it has gotten a little better, but not completely, and it is still d ifficult for her to close the right eye, and as well as retract the right side of the face. She also complains of some blurred vision on and off. She has seen a plastics surgeon in [facility], however, she does not like the place and is going to see another plastic surgeon for possible almazan splant surgery. Denies any other complaints. The patient also had MRI of the brain done recently wh ich was unremarkable. REVIEW OF SYSTEMS: Denies any headache, chest pain, shortness of breath, abdominal pain, constipatio n, diarrhea, dysuria, pyuria, cough, sputum production, skin rash. PAST MEDICAL HISTORY: Includes hypothyroidism, hypertension. CURRENT MEDICATIONS: Include Cymbalta, Elavil, nitrofurantoin, tamoxifen, Risperdal, Synthroid, Tyle nol, tramadol, urecholine, and Xanax. ALLERGIES: BLACK PEPPER. SOCIAL HISTORY: Denies any alcohol or illicit drugs. Positive for cigarette smoking. FAMILY HISTORY: Reviewed and noncontributory to this case. GENERAL PHYSICAL EXAMINATION: The patient is a middle-aged female lying on the bed in no acute distress. Her blood pressure is 127/71, heart rate is 60 per minute, breathing at a rate of 16 per minute, temp erature is 98.2 degrees Fahrenheit. HENT EXAMINATION: Head: Normocephalic, atraumatic. NECK: Supple. There are no carotid bruits. LUNGS: Clear. CARDIOVASCULAR SYSTEM EXAMINATION: S1, S2 audible. No murmurs. ABDOMEN: Soft, nontender. Bowel sounds present NEUROLOGIC EXAMINATION: MENTAL STATUS: The patient is awake, alert, oriented to time, place, person. Speech is fluent. Nam ing and repetition normal. Memory and cognition are intact. CRANIAL NERVE EXAMINATION: Pupils are 4 mm, bilaterally reactive to light. Visual felix are full. Extraocular movements are intact. There is a decreased nasolabial fold on the right side. The alvin ent has difficulty retracting the right side of the face. The patient unable to raise the right eye appropriate. She is unable to completely close the right eye. She has decreased blinking on the rig ht side. MOTOR EXAMINATION: Tone is normal. Power is 5/5 bilaterally in all extremities. Reflexes +2 and sy mmetrical. Plantars downgoing bilaterally. CEREBELLAR EXAMINATION: [id number]-vg-rdye shows no dysmetria. GAIT: Narrow based. Romberg is negative. Labs are reviewed. Shows WBC 4.2, hemoglobin 11.5, hematocrit 36.8, and platelets of 297. Sodium is 142, potassium 4.1, chloride 104, carbon dioxide content of 29, BUN of 11, creatinine 0.6, and gluco se of 84. IMPRESSION: Right-sided Stock palsy. RECOMMENDATIONS: 1. The patient to have Artificial Tears in her right eye q. 6 hours as needed basis. 2. The patient also to have Lacri-Lube ointment at nighttime. 3. The patient is to see a plastic surgeon for possible transplant surgery as an outpatient. 4. No further neurologic recommendations. Please call neurology on an as-needed basis. Thank you for the opportunity to participate in the care of this patient. Sonya Romero MD cc: [id number] TT: 12/25/2016 10:09:01 Confirmation # [id number] Dictation # [id number] karina
--- NOTE | 2016-12-25 10:41 | PCM.PYCHPN ---
Psychiatric Progress Note - Psychiatric Progress Note Patient seen today, length of contact: 30min Patient Chief Complaint: "I am here to get better, I was not able to sleep last night" Problems Identified/Issues Discussed: Suicide/ homicide prevention, past psychiatric h/o, current psychiatric symptoms , medical problems, risk/benefits and alternatives of medications, medications compliance, coping strategies, substance abuse h/o, relapse prevention, importance of follow up with psychiatrist and therapist, discharge plan. Medical Problems: multiple medical issues (see initial consult for more detailed information) Diagnostic Results: 12/25/16 08:00 12/25/16 08:00 Lab Results 12/25/16 08:00: WBC 4.2 L D, RBC 4.50, Hgb 11.5 L, Hct 36.8, MCV 81.8, MCH 25.6 , MCHC 31.3, RDW 17.4 H, Plt Count 297, MPV 9.3, Sodium 142, Potassium 4.1, Chloride 104, Carbon Dioxide 29, Anion Gap 13, BUN 11, Creatinine 0.6, Est GFR ( Amer) > 60, Est GFR (Non-Af Amer) > 60, Random Glucose 107, Calcium 8.9 , Total Bilirubin 0.3, AST 24, ALT 19, Alkaline Phosphatase 63, Total Protein 7.6, Albumin 3.9, Globulin 3.7, Albumin/Globulin Ratio 1.0 L 12/24/16 15:31: Urine Color Yellow, Urine Appearance Sl cloudy, Urine pH 7.0, Ur Specific [place] 1.010, Urine Protein Negative, Urine Glucose (UA) Negative, Urine Ketones Negative, Urine Blood Trace-intact H, Urine Nitrate Negative, Urine Bilirubin Negative, Urine Urobilinogen 0.2, Ur Leukocyte Esterase Negative , Urine RBC 2 - 5, Urine WBC 0 - 2, Ur Epithelial Cells 6 - 8, Amorphous Sediment Few, Urine Bacteria Many, Urine Other Uyeast 12/24/16 07:45: Fasting Glucose 84, Triglycerides 433 H, Cholesterol 197, LDL Cholesterol Direct 75, HDL Cholesterol 35, Free T4 1.59, TSH 3rd Generation 0.67 , RPR Nonreactive 12/23/16 17:55: Urine Color Yellow, Urine Appearance Clear, Urine pH 6.0, Ur Specific [place] 1.015, Urine Protein Negative, Urine Glucose (UA) Negative, Urine Ketones Negative, Urine Blood Negative, Urine Nitrate Negative, Urine Bilirubin Negative, Urine Urobilinogen 0.2, Ur Leukocyte Esterase Trace H, Urine RBC 2 - 5, Urine WBC 0 - 2, Ur Epithelial Cells Many, Urine Bacteria Small , Urine Opiates Screen Positive H, Urine Methadone Screen Negative, Ur Barbiturates Screen Negative, Ur Phencyclidine Scrn Negative, Ur Amphetamines Screen Negative, U Benzodiazepines Scrn Positive H, U Oth Cocaine Metabols Negative, U Cannabinoids Screen Negative 12/23/16 17:12: WBC 6.5, RBC 4.08, Hgb 10.5 L, Hct 33.7 L, MCV 82.6, MCH 25.7, MCHC 31.2, RDW 17.3 H, Plt Count 311, MPV 9.5, Gran % 34.4 L, Lymph % (Auto) 55.4 H, [place] % (Auto) 7.3 H, Eos % (Auto) 2.4, Baso % (Auto) 0.5, Gran # 2.25, Lymph # 3.6 H, [place] # 0.5, Eos # 0.2, Baso # 0.03, Sodium 140, Potassium 4.3, Chloride 101, Carbon Dioxide 31, Anion Gap 12, BUN 11, Creatinine 0.6, Est GFR ( Amer) > 60, Est GFR (Non-Af Amer) > 60, Random Glucose 85, Calcium 8.6, Total Bilirubin 0.3, AST 22, ALT < 6 L, Alkaline Phosphatase 51, Total Protein 7.3, Albumin 3.6, Globulin 3.7, Albumin/Globulin Ratio 1.0 L, Free T4 1.72, TSH 3rd Generation 0.65, Salicylates < 1 L, Acetaminophen < 10.0 L, Alcohol, Quantitative < 10 Vital Signs Temp Pulse Resp BP Pulse Ox 12/25/16 09:23 60 127/71 12/25/16 07:26 98.2 F 60 20 127/71 12/24/16 16:34 59 L 107/57 L 12/24/16 09:54 98.8 F 60 20 158/88 H 12/24/16 09:02 60 158/88 H 12/23/16 23:30 18 12/23/16 13:41 98.1 F 64 16 107/71 99 DSM 5 Symptoms Update: Shortly patient is 51 years old female, h/o depression, multiple medical issues , one psych admission in the past at age of 18, was referred by private psychiatrist for evaluation of depressive symptoms, feeling of hopelessness, inability to function. Pt is on multiple psychotropic medications as well as medical meds, needs further evaluation and stabilization, observation. pt was seen and examined at the tx team meeting, discussed with tx team. pt presented with improved personal hygiene, pt reported that she did not sleep well but "I slept better to compare to my house", pt reported to feel depressed and overwhelmed. Pt still presented to have circumstantial and tangential thought process, pressured speech. as per staff pt is needy and demanding, fixated on medications and the way she needs to take them. Pt tolerated meds well, no side effects observed or reported. AIMS 0, no EPS. Impression: Medication Change: Yes (risperdal increased, remeron increased) Medical Record Reviewed: Yes Consults ordered or reviewed: medical consult appreciated Neurology consult appreciated see notes for more detailed information Mental Status Examination - Cognitive Function Orientation: Person, Place, Situation, Time Memory: Intact Attention: Poor Concentration: Poor Association: Loose Fund of Knowledge: WNL - Mood Mood: Depressed, Anxious - Affect Affect: Flat, Other (irritable, angry) - Speech Speech: Appropriate (overproductive) - Formal Thought Process Formal Thought Process: Circumstantial Psychotic Thoughts and Behaviors: thought process circumstantial and tangential - Suicidal Ideation Suicidal Ideation: No - Homicidal Ideation Homicidal Ideation: No Goal/Treatment Plan - Goal/Treatment Plan Need for Continued Stay: Remain at risks for inpatient hospitalization, Severe depression anxiety, Discharge may exacerbated symptoms, Severe functional impairment Progress Toward Problem(s) and Goals/Treatment Plan: milieu, structure, supportive therapy meds confirmed with pt's pharmacy [phone] Amitriptyline will be decreased to 25mghs with the plan to d/c cymbalta 30mg po daily for depression, anxiety, neuropathy Alprazolam 2mg bid prn for anxiety risperdal 1mg amhs for disorganized thought process and mood stabilization remeron increased to 45mg hs for depression and insomnia neurontin will be d/c Bethanechol will be continued at hs Nexium is nonformulary, will give protonix Fluorometholone will ask medical team Levothyroxine was resumed 137 mcg PO DAILY Amitiza 1 tab PO BID will ask medical team Memantine will be d/c pt is not demented Metoprolol 50 mg PO DAILY will be continued Singulair resumed 10 mg PO DAILY Ofloxacin Ophth 0.3%1 drop LEFTEYE BID will ask medical team Propylene Glycol/Peg 400/Pf [Systane 0.3-0.4% Eye Drops] 1 drop BOTHEYES BID will ask medical team Simvastatin [Zocor] 20 mg PO DAILY 12/23/16 Tamoxifen Citrate 20 mg PO HS will be resumed (pt should continue it till the next October) Estimated Date of D/C: 12/30/16 (will monitor closely)
[2016-12-25] MEDS: Aritificial Tears (15ml) OD PRN (14:40)
[2016-12-25] MEDS: Lubricant Eye Drops UD OD PRN ×2 (21:35→22:49)
[2016-12-25] MEDS: Mineral Oil/Petrolatum Opht Oint(3.5 gm) OD SCH (22:21)
[2016-12-26] MEDS: Levothyroxine 25 MCG TAB PO SCH (08:16)
[2016-12-26] MEDS: Levothyroxine 112 MCG TAB PO SCH (08:16)
--- NOTE | 2016-12-26 09:15 | PN ---
DATE: 12/26/2016 I saw the patient walking around her room. She was in the bathroom. She got herself cleaned up, washed and brushed. She is upset that she is not sleeping well. She is currently on artificial tears eyedrops, Cymbalta, Elavil, a couple of home medications, Maalox, Macrobid for urinary tract infection, milk of magnesia , Nicoderm patch,, Protonix, Refresh artificial tears, Remeron, Risperdal, Singulair, Synthroid, Toprol, Tricor, Tylenol, Ultram, urecholine, and Xanax. PHYSICAL EXAMINATION: VITAL SIGNS: Temp 98, 62 pulse, 88/46 blood pressure, 20 respiratory rate. HEENT: Her head is atraumatic, normocephalic. She has a droop on the right side. HEART: Regular rate. LUNGS: Clear to auscultation. ABDOMEN: Soft. EXTREMITIES: No edema. LABORATORIES: Last, she had a 4.2 white count, 11.5 hemoglobin, 297 platelets. She had a 142 sodium, potassium 4.1, BUN 11, creatinine 0.6, GFR is greater than 60, sugar is 107, calcium is 8.9, total bili is 0.3, AST is 24, ALT is 19, alkaline phosphatase 63, total protein 7.6. TSH is 0.67. She had many bacteria. She is on antibiotics for that. Her only complaint today was sleep problems. I will discuss that with the psychiatrist, if they want to put her on any more medications for sleep. We will continue with aggressive treatment for her psychiatric issues. She has an old cerebrovascular accident, breast cancer history, hypertension, urinary tract infection, hypothyroid. As per psychiatry. Darius Solis DO cc: [id number] TT: 12/26/2016 09:14:18 Confirmation # [id number] Dictation # [id number] en MTDD
[2016-12-26] MEDS: Metoprolol Succinate 50 mg XL Tab PO SCH (09:28)
--- NOTE | 2016-12-26 09:44 | PCM.PYCHPN ---
Psychiatric Progress Note - Psychiatric Progress Note Patient seen today, length of contact: 30min Patient Chief Complaint: "I could rate myself as 3 out of 10, we are not going anywhere" Problems Identified/Issues Discussed: Suicide/ homicide prevention, past psychiatric h/o, current psychiatric symptoms , medical problems, risk/benefits and alternatives of medications, medications compliance, coping strategies, substance abuse h/o, relapse prevention, importance of follow up with psychiatrist and therapist, discharge plan. Medical Problems: h/o strokes, h/o Stock's palsy, pt has facial assymetry, h/o hyperthyroidism, pt has private toby maker, pt is a breast ca survivor is on tamoxifen, pt also has private neurologist . see medical note for more detailed info, h /o meningitis at age of 1yo. Diagnostic Results: 12/25/16 08:00 12/25/16 08:00 Lab Results 12/25/16 08:00: WBC 4.2 L D, RBC 4.50, Hgb 11.5 L, Hct 36.8, MCV 81.8, MCH 25.6 , MCHC 31.3, RDW 17.4 H, Plt Count 297, MPV 9.3, Sodium 142, Potassium 4.1, Chloride 104, Carbon Dioxide 29, Anion Gap 13, BUN 11, Creatinine 0.6, Est GFR ( Amer) > 60, Est GFR (Non-Af Amer) > 60, Random Glucose 107, Calcium 8.9 , Total Bilirubin 0.3, AST 24, ALT 19, Alkaline Phosphatase 63, Total Protein 7.6, Albumin 3.9, Globulin 3.7, Albumin/Globulin Ratio 1.0 L 12/24/16 15:31: Urine Color Yellow, Urine Appearance Sl cloudy, Urine pH 7.0, Ur Specific [place] 1.010, Urine Protein Negative, Urine Glucose (UA) Negative, Urine Ketones Negative, Urine Blood Trace-intact H, Urine Nitrate Negative, Urine Bilirubin Negative, Urine Urobilinogen 0.2, Ur Leukocyte Esterase Negative , Urine RBC 2 - 5, Urine WBC 0 - 2, Ur Epithelial Cells 6 - 8, Amorphous Sediment Few, Urine Bacteria Many, Urine Other Uyeast 12/24/16 07:45: Fasting Glucose 84, Triglycerides 433 H, Cholesterol 197, LDL Cholesterol Direct 75, HDL Cholesterol 35, Free T4 1.59, TSH 3rd Generation 0.67 , RPR Nonreactive 12/23/16 17:55: Urine Color Yellow, Urine Appearance Clear, Urine pH 6.0, Ur Specific [place] 1.015, Urine Protein Negative, Urine Glucose (UA) Negative, Urine Ketones Negative, Urine Blood Negative, Urine Nitrate Negative, Urine Bilirubin Negative, Urine Urobilinogen 0.2, Ur Leukocyte Esterase Trace H, Urine RBC 2 - 5, Urine WBC 0 - 2, Ur Epithelial Cells Many, Urine Bacteria Small , Urine Opiates Screen Positive H, Urine Methadone Screen Negative, Ur Barbiturates Screen Negative, Ur Phencyclidine Scrn Negative, Ur Amphetamines Screen Negative, U Benzodiazepines Scrn Positive H, U Oth Cocaine Metabols Negative, U Cannabinoids Screen Negative 12/23/16 17:12: WBC 6.5, RBC 4.08, Hgb 10.5 L, Hct 33.7 L, MCV 82.6, MCH 25.7, MCHC 31.2, RDW 17.3 H, Plt Count 311, MPV 9.5, Gran % 34.4 L, Lymph % (Auto) 55.4 H, [place] % (Auto) 7.3 H, Eos % (Auto) 2.4, Baso % (Auto) 0.5, Gran # 2.25, Lymph # 3.6 H, [place] # 0.5, Eos # 0.2, Baso # 0.03, Sodium 140, Potassium 4.3, Chloride 101, Carbon Dioxide 31, Anion Gap 12, BUN 11, Creatinine 0.6, Est GFR ( Amer) > 60, Est GFR (Non-Af Amer) > 60, Random Glucose 85, Calcium 8.6, Total Bilirubin 0.3, AST 22, ALT < 6 L, Alkaline Phosphatase 51, Total Protein 7.3, Albumin 3.6, Globulin 3.7, Albumin/Globulin Ratio 1.0 L, Free T4 1.72, TSH 3rd Generation 0.65, Salicylates < 1 L, Acetaminophen < 10.0 L, Alcohol, Quantitative < 10 Vital Signs Temp Pulse Resp BP Pulse Ox 12/25/16 09:23 60 127/71 12/25/16 07:26 98.2 F 60 20 127/71 12/24/16 16:34 59 L 107/57 L 12/24/16 09:54 98.8 F 60 20 158/88 H 12/24/16 09:02 60 158/88 H 12/23/16 23:30 18 12/23/16 13:41 98.1 F 64 16 107/71 99 Temp Pulse Resp BP Pulse Ox 98.0 F 67 20 101/60 99 12/26/16 07:36 12/26/16 09:28 12/26/16 07:36 12/26/16 09:28 12/23/16 13:41 DSM 5 Symptoms Update: Shortly patient is 51 years old female, h/o depression, multiple medical issues , one psych admission in the past at age of 18, was referred by private psychiatrist for evaluation of depressive symptoms, feeling of hopelessness, inability to function. Pt is on multiple psychotropic medications as well as medical meds, needs further evaluation and stabilization, observation. pt was seen and examined at the tx team meeting, discussed with tx team. pt presented with improved personal hygiene, pt reported that she did not sleep well "I could rate myself as 3 out of 10, we are not going anywhere", at the same time pt said when she came to the hospital it ws 0 out of 10. pt said that her mood "was stable yesterday, I was not worried at all", pt has some improvements but seems to have high expectations and quick fix. pt still has circumstantial and tangential thought process, but with some improvements, speech is more organized. pt c/o flashbacks and nightmares, was educated about prazosin in the future, nonformulary in the hospital. as per staff pt is needy, less demanding, more polite. Pt tolerated meds well, no side effects observed or reported. AIMS 0, no EPS. Impression: DSM 5 Diagnosis: rule out bipolar spectrum disorder r/o mood disorder due to a general medical condition polypharmacy r/o medication induced mood disorder r/o BRITANY Medication Change: Yes (sonata started, remeron d/c, cymbalta increased, elavil d/c) Medical Record Reviewed: Yes Consults ordered or reviewed: medical consult appreciated Neurology consult appreciated see notes for more detailed information Mental Status Examination - Cognitive Function Orientation: Person, Place, Situation, Time Memory: Intact Attention: Poor (some improvement) Concentration: Poor (some improvement) Association: Loose (some improvement) Fund of Knowledge: WNL - Mood Mood: Depressed, Anxious - Affect Affect: Flat - Speech Speech: Appropriate (overproductive) - Formal Thought Process Formal Thought Process: Circumstantial - Suicidal Ideation Suicidal Ideation: No - Homicidal Ideation Homicidal Ideation: No Goal/Treatment Plan - Goal/Treatment Plan Need for Continued Stay: Remain at risks for inpatient hospitalization, Severe depression anxiety, Discharge may exacerbated symptoms, Severe functional impairment Progress Toward Problem(s) and Goals/Treatment Plan: milieu, structure, supportive therapy meds confirmed with pt's pharmacy [phone] Amitriptyline d/c cymbalta 40mg po daily for depression, anxiety, neuropathy Alprazolam 2mg bid prn for anxiety risperdal 1mg am 2mg hs for disorganized thought process and mood stabilization remeron d/c sonata 10mg po hs for insomnia pulmonology consult will be called prazosin will be considered in the future neurontin will be d/c Bethanechol will be continued at hs Nexium is nonformulary, will give protonix Fluorometholone will ask medical team Levothyroxine was resumed 137 mcg PO DAILY Amitiza 1 tab PO BID will ask medical team Memantine will be d/c pt is not demented Metoprolol 50 mg PO DAILY will be continued Singulair resumed 10 mg PO DAILY Ofloxacin Ophth 0.3%1 drop LEFTEYE BID will ask medical team Propylene Glycol/Peg 400/Pf [Systane 0.3-0.4% Eye Drops] 1 drop BOTHEYES BID will ask medical team Simvastatin [Zocor] 20 mg PO DAILY 12/23/16 Tamoxifen Citrate 20 mg PO HS will be resumed (pt should continue it till the next October) Estimated Date of D/C: 12/30/16 (will monitor closely)
[2016-12-26] MEDS: NEXIUM 40MG CAPSULE PO SCH (10:29)
[2016-12-26] MEDS: Aritificial Tears (15ml) OD PRN (17:39)
[2016-12-26] MEDS: Mineral Oil/Petrolatum Opht Oint(3.5 gm) OD SCH (21:48)
[2016-12-26] MEDS: Lubricant Eye Drops UD OD PRN (21:49)
[2016-12-27 07:06] VITALS: BP 96/52; PULSE 53; TEMP 98.2
[2016-12-27] MEDS ORDERED: Pantoprazole 40 mg EC Tab PO SCH (07:30)
[2016-12-27] MEDS: Levothyroxine 25 MCG TAB PO SCH (08:00)
[2016-12-27] MEDS: Levothyroxine 112 MCG TAB PO SCH (08:01)
--- NOTE | 2016-12-27 08:10 | CON ---
DATE: 12/26/2016 REFERRING PHYSICIAN: Johanne Robles MD REASON FOR CONSULT: Insomnia, may have sleep apnea syndrome. HISTORY OF PRESENT ILLNESS: This is a 51-year-old female with past medical history significant for h ypothyroid, hypertension. Apparently had a sleep study in the remote past, tried CPAP one time then she did not follow up. Now complaining about snoring, insomnia, daytime sleepy and tired. There is no chest pain. No nausea, no vomiting or diarrhea. No leg pain or leg swelling. PAST MEDICAL HISTORY: Hypothyroid, hypertension, insomnia, sleep apnea syndrome. ALLERGIES: Allergic to no medications. ALLERGIC TO BLACK PEPPER. FAMILY HISTORY: No significant cardiopulmonary disease reported. SOCIAL HISTORY: Denies any alcohol. Does smoke cigarettes. MEDICATIONS: She is on Artificial Tears, Cymbalta 40 mg daily, Maalox p.r.n. basis, Macrobid 100 mg twice a day, Nicoderm patch daily, tamoxifen 20 mg at bedtime, Protonix 40 mg daily, Risperdal 2 mg a t bedtime and 1 mg daily, Singulair 10 mg daily, Sonata 10 mg at bedtime, Synthroid 137 mcg daily, To prol-XL 50 mg daily, Tricor 145 mg at bedtime, Tylenol on a p.r.n. basis, Ultram p.r.n. basis, urecho line 25 mg at bedtime, Xanax 2 mg a.m. and at bedtime p.r.n. REVIEW OF SYSTEMS: No headache, no rhinitis. No cough, no sputum production. No chest pain. No na usea, no vomiting or diarrhea. No leg pain or leg swelling. Admitted to have snoring, daytime sleep y and tired. Also, complaining about insomnia. PHYSICAL EXAMINATION: GENERAL: Sitting up in chair, in no acute distress. VITAL SIGNS: Temp is 98, heart rate 62, respiratory rate is 20, blood pressure 92/58. HEENT: Small oral cavity. Crowded airway. Mallampati score is 4. NECK: Supple. No JVD. LUNGS: Have a fair airflow with few rhonchi. HEART: S1, S2. ABDOMEN: Soft, nontender. No organomegaly. EXTREMITIES: There is no edema. NEUROLOGIC: Awake, alert, follows simple commands. LABORATORY DATA: Shows hemoglobin 11.5, hematocrit 36.8, WBC 4.2, platelet is 297. Sodium 142, pota ssium 4.1, chloride 104, bicarbonate 29, BUN 11, creatinine 0.6, glucose 107, calcium is 8.9. AST 24 , ALT 19, alkaline phosphatase is 63, albumin is 3.9. Triglycerides 433, cholesterol is 197. TSH is 0.67. Drug screen positive for opiates and benzodiazepines. IMPRESSION: Anxiety and depression, insomnia, may have sleep apnea syndrome, hypothyroid, hypertensi on, especially high risk for sleep apnea now with sedatives. PLAN: I will place her on CPAP 7 cm while sleeping. Keep head elevated at 45 degrees. Recommend at tended sleep study as an outpatient. Fall precautions. Thank you, and will follow with you. Ryder Lara MD cc: [id number] TT: 12/27/2016 08:09:37 Confirmation # [id number] Dictation # [id number] mn
[2016-12-27] MEDS: Metoprolol Succinate 50 mg XL Tab PO SCH (08:45)
[2016-12-27] MEDS: NEXIUM 40MG CAPSULE PO SCH (08:47)
--- NOTE | 2016-12-27 09:35 | PN ---
DATE: 12/27/2016 I saw her resting in bed. She did not sleep well again last night. She has multiple complaints abou t the food, the bed, the pillow, medications. She has just a lot of complaints this morning. She is on artificial tears, Cymbalta, 2 home meds, Maalox, Macrobid for urinary tract infection, milk of magnesia, Nicoderm because she is a smoker, Nolvadex for the breast cancer history, Protonix, Ref resh, Risperdal, Singulair, Sonata, Synthroid for hypothyroidism, Toprol for hypertension, Tricor for her high triglycerides, Tylenol, Ultram, urecholine, and Xanax. PHYSICAL EXAMINATION: VITAL SIGNS: She has a 98.2 temp, 53 pulse, 96/52 blood pressure, 20 respiratory rate. HEENT: Her head is atraumatic, normocephalic. Right side of the face is drooping. NECK: Supple. HEART: Regular rate. LUNGS: Decreased breath sounds. ABDOMEN: Soft. EXTREMITIES: There is a little bit of weakness in the legs. She has multiple issues. She is being seen by psychiatry for her issues and they are adjusting her m edications. Possible bipolar disorder, mood disorder. I encouraged her to eat well, take the medica tions, participate in groups. Last labs were on the and she did very well. We will continue wit h aggressive treatment and care psychologically and encourage her to participate. Darius Solis DO cc: [id number] TT: 12/27/2016 09:35:32 Confirmation # [id number] Dictation # [id number] en
--- NOTE | 2016-12-27 19:08 | PCM.PYCHDC ---
Mental Status Examination - Mental Status Examination Orientation: Person, Place, Situation, Time Memory: Intact Mood: Neutral Affect: Broad Speech: Appropriate (overproductive) Attention: WNL Concentration: WNL Association: WNL Fund of Knowledge: WNL Formal Thought Process: Other (circumstantial and tangential) Description of patient's judgement and insight: Pt has improved insight into mental and medical illness, pt was compliant with medications and unit rules and regulations, pt was going to groups, was calm, cooperative, socially appropriate, no behavioral incidents, no agitation, no aggression. Psychotic Thoughts and Behaviors: Pt denied v/a/t hallucinations, denied paranoid ideations, pt does not appear to be psychotic, and thought process is goal directed. Suicidal Ideation: No Current Homicidal Ideation?: No Plan: pt adamantly denied thoughts of harming self or others denied intent or plan. Discharge Summary - Discharge Note Reason for Hospitalization: patient was referred by her private psychiatrist Dr. Das for admission, as well as medications adjustment. Psychiatric History (includes Medical, Family, Personal Hx): see HPI Laboratory Data: 12/25/16 08:00 12/25/16 08:00 Lab Results 12/25/16 08:00: WBC 4.2 L D, RBC 4.50, Hgb 11.5 L, Hct 36.8, MCV 81.8, MCH 25.6 , MCHC 31.3, RDW 17.4 H, Plt Count 297, MPV 9.3, Sodium 142, Potassium 4.1, Chloride 104, Carbon Dioxide 29, Anion Gap 13, BUN 11, Creatinine 0.6, Est GFR ( Amer) > 60, Est GFR (Non-Af Amer) > 60, Random Glucose 107, Calcium 8.9 , Total Bilirubin 0.3, AST 24, ALT 19, Alkaline Phosphatase 63, Total Protein 7.6, Albumin 3.9, Globulin 3.7, Albumin/Globulin Ratio 1.0 L 12/24/16 15:31: Urine Color Yellow, Urine Appearance Sl cloudy, Urine pH 7.0, Ur Specific Dexter 1.010, Urine Protein Negative, Urine Glucose (UA) Negative, Urine Ketones Negative, Urine Blood Trace-intact H, Urine Nitrate Negative, Urine Bilirubin Negative, Urine Urobilinogen 0.2, Ur Leukocyte Esterase Negative , Urine RBC 2 - 5, Urine WBC 0 - 2, Ur Epithelial Cells 6 - 8, Amorphous Sediment Few, Urine Bacteria Many, Urine Other Uyeast 12/24/16 07:45: Fasting Glucose 84, Triglycerides 433 H, Cholesterol 197, LDL Cholesterol Direct 75, HDL Cholesterol 35, Free T4 1.59, TSH 3rd Generation 0.67 , RPR Nonreactive 12/23/16 17:55: Urine Color Yellow, Urine Appearance Clear, Urine pH 6.0, Ur Specific Dexter 1.015, Urine Protein Negative, Urine Glucose (UA) Negative, Urine Ketones Negative, Urine Blood Negative, Urine Nitrate Negative, Urine Bilirubin Negative, Urine Urobilinogen 0.2, Ur Leukocyte Esterase Trace H, Urine RBC 2 - 5, Urine WBC 0 - 2, Ur Epithelial Cells Many, Urine Bacteria Small , Urine Opiates Screen Positive H, Urine Methadone Screen Negative, Ur Barbiturates Screen Negative, Ur Phencyclidine Scrn Negative, Ur Amphetamines Screen Negative, U Benzodiazepines Scrn Positive H, U Oth Cocaine Metabols Negative, U Cannabinoids Screen Negative 12/23/16 17:12: WBC 6.5, RBC 4.08, Hgb 10.5 L, Hct 33.7 L, MCV 82.6, MCH 25.7, MCHC 31.2, RDW 17.3 H, Plt Count 311, MPV 9.5, Gran % 34.4 L, Lymph % (Auto) 55.4 H, Lake % (Auto) 7.3 H, Eos % (Auto) 2.4, Baso % (Auto) 0.5, Gran # 2.25, Lymph # 3.6 H, Lake # 0.5, Eos # 0.2, Baso # 0.03, Sodium 140, Potassium 4.3, Chloride 101, Carbon Dioxide 31, Anion Gap 12, BUN 11, Creatinine 0.6, Est GFR ( Amer) > 60, Est GFR (Non-Af Amer) > 60, Random Glucose 85, Calcium 8.6, Total Bilirubin 0.3, AST 22, ALT < 6 L, Alkaline Phosphatase 51, Total Protein 7.3, Albumin 3.6, Globulin 3.7, Albumin/Globulin Ratio 1.0 L, Free T4 1.72, TSH 3rd Generation 0.65, Salicylates < 1 L, Acetaminophen < 10.0 L, Alcohol, Quantitative < 10 Vital Signs Temp Pulse Resp BP Pulse Ox 12/27/16 07:04 98.2 F 53 L 20 96/52 L 12/26/16 16:00 89 92/58 L 12/26/16 09:28 67 101/60 12/26/16 07:36 98.0 F 62 20 88/46 L 12/25/16 15:30 74 89/60 L 12/25/16 09:23 60 127/71 12/25/16 07:26 98.2 F 60 20 127/71 12/24/16 16:34 59 L 107/57 L 12/24/16 09:54 98.8 F 60 20 158/88 H 12/24/16 09:02 60 158/88 H 12/23/16 23:30 18 12/23/16 13:41 98.1 F 64 16 107/71 99 Consultations:: List each consultation separately and include: 1. Reason for request. 2. Findings. 3. Follow-up Consultations: medical consult appreciated Neurology consult appreciated pulmonology consult appreciated see notes for more detailed information Summary of Hospital Course include:: 1. Description of specific treatment plan utilized for patients during their course of treatmen. 2. Summarize the time- course for resolution of acute symptoms and/or regressed behaviors. 3. Describe issues identified and worked on during hospitalization. 4. Describe medication utilized. 5. Describe medical problems identified and treated. 6. Reassessment of suicide risk Summary of Hospital Course: pt was seen by by mistake. Shortly patient is 51 years old female, h/o depression, multiple medical issues , one psych admission in the past at age of 18, was referred by private psychiatrist for evaluation of depressive symptoms, feeling of hopelessness, inability to function. Pt is on multiple psychotropic medications as well as medical meds, needs further evaluation and stabilization, observation. pt was seen and examined at the tx team meeting, discussed with tx team. pt presented with marginal personal hygiene, seems to be careless about her appearance, fair ADLs. pt said that she is taking multiple medications, this music writer called to the pt's pharmacy, confirmed all [phone] neurontin 800 mg at the night filled 11/28/[address] 40 mg daily filled 11/28/2016 Montelukast 10mg po daily 12/23/2016 Endocet 10/325mg as needed q8hrs 12/20/2016 symbicort 160/4.5 filled 12/17/2016 simvastatin 20 mg twice a day field 12/14/2016 Belsomra 10 mg at the nighttime filled 12/10/2016 promethazine as needed Tamoxifen 20 mg daily filled 12/08/2016 Amox-clav [id number] twice a day after meals filled only week supply Xanax 2 mg 1 tab a.m. and at bedtime Amitriptyline 50 mg before bedtime filled 12/05/2016 Quetiapine 50 mg at the night time ofloxacin 0.3% eye drops only one week supply bacitracin-polymyxin eye oint filled 11/30/2016 metoprolol ER 50mg daily filled 11/25/2016 montelucast sodium 10mg po daily filled 11/24/16 Trazodone 300mg po hs filled 11/12/2016 Donepezil 5mg po hs filled 11/12/2016 Namenda XR 28mg daily filled 11/05/2016 temazepam 30mg po hs filled 10/29/2016 synthroid 137mcg daily filled 10/04/2016 pt said that at night she has difficulties to fall and to stay asleep and at the morning she has difficulties to function. pt said she was feeling depressed, hopeless and helpless, denied thoughts of harming self or others. Pt reported that she has difficulties to concentrate, difficulties to stay focus, pt also reported her mind is wondering, and obviously pt has tangential and circumstantial thought process, pt also reported that she had h/o multitasking and impulsive behavior. Pt also reported being irritable, impulsive and agitated behavior. pt also reported to have anxiety, pt said that she is worried about things a lot. Pt said she was started on medications for her "memory", most likely namenda and donepezil by private psychiatrist, pt was on barbiturates, neurontin, trazodone, temazepam and seroquel, amitriptylin. pt denied v/a/t hallucinations, denied paranoid ideation, but thought process was circumstantial and tangential. denied using drugs, smokes about 7 cig a day, counseling provided. Smoking Cessation Counseling: The patient was counseled as to the multiple risks to his/her health from continued use of tobacco products. It was explained that continuing to smoke may lead to multiple short and exterminator termite negative health consequences, including but not limited to mouth/esophageal /lung cancer, COPD, and heart disease. He/she states he/she understands these risks, and also understands the options and resources available to him/her to help him/her stop smoking. Nicotine replacement therapy, local hotlines, and local resources were discussed as viable options for helping him/her stop his/her tobacco use. The total time spent counseling the patient regarding tobacco cessation was 3 minutes Social h/o: pt is , has a dog. past psych h/o: at age of 18, pt's had an affair and her cousin had a child from her , pt had thoughts of harming self, but called 911 and admitted herself into the hospital. 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 see medical note for more detailed info, h/o meningitis at age of 1yo. family h/o: alcohol dependence in her father. 12/23/16 17:12 12/23/16 17:12 Lab Results 12/24/16 07:45: Fasting Glucose 84, Triglycerides 433 H, Cholesterol 197, LDL Cholesterol Direct 75, HDL Cholesterol 35, Free T4 1.59, TSH 3rd Generation 0.67 12/23/16 17:55: Urine Color Yellow, Urine Appearance Clear, Urine pH 6.0, Ur Specific Dexter 1.015, Urine Protein Negative, Urine Glucose (UA) Negative, Urine Ketones Negative, Urine Blood Negative, Urine Nitrate Negative, Urine Bilirubin Negative, Urine Urobilinogen 0.2, Ur Leukocyte Esterase Trace H, Urine RBC 2 - 5, Urine WBC 0 - 2, Ur Epithelial Cells Many, Urine Bacteria Small , Urine Opiates Screen Positive H, Urine Methadone Screen Negative, Ur Barbiturates Screen Negative, Ur Phencyclidine Scrn Negative, Ur Amphetamines Screen Negative, U Benzodiazepines Scrn Positive H, U Oth Cocaine Metabols Negative, U Cannabinoids Screen Negative 12/23/16 17:12: WBC 6.5, RBC 4.08, Hgb 10.5 L, Hct 33.7 L, MCV 82.6, MCH 25.7, MCHC 31.2, RDW 17.3 H, Plt Count 311, MPV 9.5, Gran % 34.4 L, Lymph % (Auto) 55.4 H, Lake % (Auto) 7.3 H, Eos % (Auto) 2.4, Baso % (Auto) 0.5, Gran # 2.25, Lymph # 3.6 H, Lake # 0.5, Eos # 0.2, Baso # 0.03, Sodium 140, Potassium 4.3, Chloride 101, Carbon Dioxide 31, Anion Gap 12, BUN 11, Creatinine 0.6, Est GFR ( Amer) > 60, Est GFR (Non-Af Amer) > 60, Random Glucose 85, Calcium 8.6, Total Bilirubin 0.3, AST 22, ALT < 6 L, Alkaline Phosphatase 51, Total Protein 7.3, Albumin 3.6, Globulin 3.7, Albumin/Globulin Ratio 1.0 L, Free T4 1.72, TSH 3rd Generation 0.65, Salicylates < 1 L, Acetaminophen < 10.0 L, Alcohol, Quantitative < 10 Vital Signs Temp Pulse Resp BP Pulse Ox 12/24/16 09:54 98.8 F 60 20 158/88 H 12/24/16 09:02 60 158/88 H 12/23/16 23:30 18 12/23/16 13:41 98.1 F 64 16 107/71 99 this music writer did a lot of changes with patient medications: Amitriptyline d/c cymbalta 40mg po daily for depression, anxiety, neuropathy Alprazolam 2mg bid prn for anxiety risperdal 1mg am 2mg hs for disorganized thought process and mood stabilization remeron d/c sonata 10mg po hs for insomnia neurontin d/c Donepezil 5mg po was discontinued Namenda XR 28mg daily as discontinued temazepam 30mg po was discontinued patient was seen by neurologist, patient needs to have outpatient sleep study. Patient tolerated medications well no side effects observed or reported aims 0, no EPS patient presented in hypomanic stage, this music writer had impression that bipolar spectrum disorder was misdiagnosed in the past, patient tolerated Risperdal very well, much better Over the course of this hospitalization pt was attending groups, pt also had medication management, had therapeutic milieu. Overall pt improved significantly, pt's affect became brighter, pt was less depressed, has realistic future oriented plans, pt also does not appear to be psychotic, or anxious, pt was socially appropriate, no behavioral issues, pts insight improved as well and soon pt deemed to be ready for discharge. At the time of the discharge pt denied been depressed, denied thoughts of harming self or others, denied psychotic symptoms, and pt does not appeared to be psychotic, denied been anxious, was considered to pose no threat to self or others, will be following up at office, information about follow up appointment, time and address provided to the pt, it is patient responsibility to follow up with outpatient clinic, PMD as well as specialists (see SW note for more detailed information). In case pt will need to obtain results of studies pending at discharge pt was provided with contact information of Psychiatric Inpatient unit [phone] as well as Medical Record Department [phone]. Nicotine patch was offered Counseling about smoking cessation provided [facility] [place] [facility] smoking cessation treatment program information was provided by the pt was provided with prescriptions for all of medications (please see medication reconciliation form) Pt was educated about safety plan in case of worsening of symptoms or in case of suicidal or homicidal ideation call 911 or go to the nearest ER, also was educated to take meds as prescribed and stay away from drugs, pt verbalized understanding. 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 Status: Acute (5) Mood disorder with manic features due to general medical condition Status: Acute - Final Diagnosis (DSM 5) Condition upon Discharge: STABLE Disposition: HOME/ ROUTINE Follow-up Treatment Plan: At the time of the discharge pt denied been depressed, denied thoughts of harming self or others, denied psychotic symptoms, and pt does not appeared to be psychotic, denied been anxious, was considered to pose no threat to self or others, will be following up at office, information about follow up appointment, time and address provided to the pt, it is patient responsibility to follow up with outpatient clinic, PMD as well as specialists (see SW note for more detailed information). In case pt will need to obtain results of studies pending at discharge pt was provided with contact information of Psychiatric Inpatient unit [phone] as well as Medical Record Department [phone]. Nicotine patch was offered Counseling about smoking cessation provided [facility] smoking cessation treatment program information was provided by the DANIEL pt was provided with prescriptions for all of medications (please see medication reconciliation form) Pt was educated about safety plan in case of worsening of symptoms or in case of suicidal or homicidal ideation call 911 or go to the nearest ER, also was educated to take meds as prescribed and stay away from drugs, pt verbalized understanding. Prescriptions/Medication Reconciliation: DULoxetine [Cymbalta] 60 mg PO DAILY #14 ecc Nitrofurantoin Macrocrystals [Macrobid] 100 mg PO Q12 #10 cap Nicotine 7 mg/24 hr [Nicoderm CQ] 1 patch TD DAILY #14 patch risperiDONE [RisperDAL Tab] 1 mg PO DAILY #14 tab risperiDONE [RisperDAL Tab] 2 mg PO HS #14 tab Zaleplon [Sonata] 10 mg PO HS #14 cap ALPRAZolam [Xanax] 2 mg PO AMHS PRN #30 tab PRN Reason: for anxiety - Smoking Cessation Smoking Cessation Medication prescribed: Yes - Antipsychotic Medications Pt discharged on 2 or more routine antipsychotic medications: No
== END 2016-12-27 15:22 | disposition home or self-care (01) | DRG 430 ==
LOC: ED 13:12 → MERGE 13:12 → ERH 18:20 → PSYC 21:08
PROVIDERS: ADMIT Psychiatry & Neurology Psychiatry; ATTEND Psychiatry & Neurology Psychiatry
PROC: GZ3ZZZZ Medication Management (ICD-10-PCS; principal; 2016-12-23)
DX: F31.81 Bipolar II disorder (principal); G30.9 Alzheimer's disease, unspecified; F02.80 Dementia in other diseases classified elsewhere, unspecified severity, without behavioral disturbance, psychotic disturbance, mood disturbance, and anxiety; N39.0 Urinary tract infection, site not specified; F06.34 Mood disorder due to known physiological condition with mixed features; G51.0 Bell's palsy; I10 Essential (primary) hypertension; F41.9 Anxiety disorder, unspecified; E78.5 Hyperlipidemia, unspecified; E03.9 Hypothyroidism, unspecified; E78.00 Pure hypercholesterolemia, unspecified; F17.210 Nicotine dependence, cigarettes, uncomplicated; H53.8 Other visual disturbances; G47.30 Sleep apnea, unspecified; G47.00 Insomnia, unspecified; K21.9 Gastro-esophageal reflux disease without esophagitis; K29.70 Gastritis, unspecified, without bleeding; J32.9 Chronic sinusitis, unspecified; Z85.3 Personal history of malignant neoplasm of breast; Z92.3 Personal history of irradiation; Z79.810 Long term (current) use of selective estrogen receptor modulators (SERMs); Z86.73 Personal history of transient ischemic attack (TIA), and cerebral infarction without residual deficits; Z86.61 Personal history of infections of the central nervous system; Z82.49 Family history of ischemic heart disease and other diseases of the circulatory system